=== PATIENT | male | born 1950 | race Caucasian/White ===

== ENCOUNTER 2016-12-27 23:14 | Outpatient (CLI) | END 2016-12-27 23:15 | disposition home or self-care (01) | LOC: AMBL 23:14 | PROVIDERS: ATTEND Emergency Medicine | DX: I10 Essential (primary) hypertension (principal) ==

== ENCOUNTER → 2017-03-11 | Outpatient (CLI) | payer OTHER | LOC: AMBL 03:34 | PROVIDERS: ATTEND Family Medicine | DX: R06.02 Shortness of breath (principal); R05 Cough; I45.10 Unspecified right bundle-branch block; R73.9 Hyperglycemia, unspecified; Z99.81 Dependence on supplemental oxygen; Z91.14 Patient's other noncompliance with medication regimen ==